=== PATIENT | female | born 1955 | race Two or more races ===

== ENCOUNTER 2025-09-25 10:25 | Emergency (ER) | payer BC ==
[~2025-09-25] VITALS: Ht 157.5 cm; Wt 86.2 kg
[2025-09-25] MEDS ORDERED: LOSA50TA39 PO (10:43)
[2025-09-25] MEDS ORDERED: DEXAMETHASONE SOD PHOSPHATE 10 MG INJ ONE (10:46)
[2025-09-25] MEDS ORDERED: ACETAMINOPHEN 500 MG TABLET ONE ×2 (10:46→17:49)
[2025-09-25] MEDS: ACETAMINOPHEN 500 MG TABLET PO ONE ×2 (10:52→17:50)
[2025-09-25] MEDS: DEXAMETHASONE SOD PHOSPHATE 4 MG INJ IV ONE (10:55)
[2025-09-25 10:59] LABS: PLATELET COUNT (AUTO) 239 K/uL (179-408); RED BLOOD CELL COUNT(AUTO) 4.71 MIL/uL (3.63-4.92); RED CELL DISTRIBUTION WIDTH 15.7 % (12.3-17.7); WHITE BLOOD COUNT (AUTO) 7.7 K/uL (3.8-11.8)
[2025-09-25] MEDS: IPRATROPIUM BROMIDE 0.5 MG/2.5 ML NEBU NEB ONE (11:18)
[2025-09-25] MEDS: ALBUTEROL SULFATE 2.5 MG/3 ML NEBU NEB ONE (11:19)
[2025-09-25 11:20] VITALS: O2SAT 97
[2025-09-25] MEDS ORDERED: IPRATROPIUM BROMIDE 0.5 MG/2.5 ML NEBU ONE (11:21)
[2025-09-25] MEDS ORDERED: ALBUTEROL SULFATE 2.5 MG/3 ML NEBU ONE (11:22)
[2025-09-25 11:26] LABS: CREATININE 0.5 mg/dL (0.6-1.3); SODIUM SERUM 140 mmol/L (136-145); UREA NITROGEN, BLOOD 18 mg/dL (7-18)
[2025-09-25 12:03] VITALS: BP 158/93
[2025-09-25 12:16] LABS: *BILIRUBIN,URIN NEGATIVE (NEGATIVE); *BLOOD, URINE 1+ (NEGATIVE); *CLARITY,URINE CLEAR (CLEAR); *COLOR,URINE YELLOW (YELLOW); *KETONES,URINE NEGATIVE (NEGATIVE); *PROTEIN,URINE NEGATIVE (NEGATIVE); *UROBILINOGEN,URINE 0.2 E.U./dl (NORMAL); LEUKOCYTE ESTERASE ,URINE NEGATIVE (NEGATIVE); NITRITE, URINE NEGATIVE (NEGATIVE); UGLUCOSE NEGATIVE (NEGATIVE)
[2025-09-25 12:20] VITALS: O2SAT 100; O2SAT 97
[2025-09-25] MEDS ORDERED: METOCLOPRAMIDE HCL 10 MG/2 ML VIAL ONE (12:25)
[2025-09-25] MEDS ORDERED: diphenhydrAMINE 50 MG/1 ML VIAL ONE (12:25)
[2025-09-25] MEDS: METOCLOPRAMIDE HCL 10 MG/2 ML VIAL IV ONE (12:27)
[2025-09-25] MEDS: diphenhydrAMINE 50 MG/1 ML VIAL IV ONE (12:27)
[2025-09-25 12:54] LABS: SQUAMOUS EPITHELIAL CELL,UR FEW /HPF (NONE SEEN)
[2025-09-25 23:30] VITALS: BP 143/76; O2SAT 95
== END 2025-09-25 23:55 | disposition short-term general hospital (02) ==
LOC: ER 10:30
DX: I16.0 Hypertensive urgency (principal); J40 Bronchitis, not specified as acute or chronic; I67.82 Cerebral ischemia; I11.9 Hypertensive heart disease without heart failure; Z79.899 Other long term (current) drug therapy; Z88.6 Allergy status to analgesic agent; Z20.822 Contact with and (suspected) exposure to COVID-19
CPT/HCPCS: 99285; 96374; 96375; 70450; 71045; 87426; 87804 ×2; 80048; 81001; 83735; 84100; 84443; 85025; 87040 ×2; 84484; 36415; 94644; 93005; 83605; J1100; J1200; J0360; J2765; A4606; A4663; A9150; J3590